=== PATIENT | female | born 1935 | race Caucasian/White ===

== ENCOUNTER → 2020-02-24 | Outpatient (CLI) | payer MEDICARE, BC | LOC: COL.VAS 10:29 | DX: R51 Headache (principal); R27.0 Ataxia, unspecified ==

== ENCOUNTER 2024-04-25 08:45 | Outpatient (RCR) | payer MEDICARE, BC | END 2024-05-04 | disposition home or self-care (01) | LOC: WSST | DX: R13.12 Dysphagia, oropharyngeal phase (principal) ==

== ENCOUNTER 2024-05-24 08:45 | Outpatient (RCR) | payer MEDICARE, BC | END 2024-06-04 | disposition home or self-care (01) | LOC: WSST | DX: R13.12 Dysphagia, oropharyngeal phase (principal) ==

== ENCOUNTER 2024-06-09 09:17 | Outpatient (RCR) | payer MEDICARE, BC ==
[2024-06-24] MEDS ORDERED: PEPCID 20MG TAB20 MG PO (07:18)
[2024-06-24] MEDS ORDERED: MOBIC 7.5MG7.5 MG PO (07:18)
== END 2024-07-04 | disposition home or self-care (01) ==
LOC: WSST
DX: R13.12 Dysphagia, oropharyngeal phase (principal)

== ENCOUNTER 2024-06-24 06:19 | Day surgery (SDC) | payer MEDICARE, BC ==
[~2024-06-24] VITALS: Ht 162.6 cm; Wt 45.7 kg
[~2024-06-24 06:19] MED LIST: LR 1,000 ML IV SCH; Ondansetron 4 MG/2 ML VIAL IV PRN
[2024-06-24 07:14] VITALS: BP 130/80; PULSE 73; TEMP 96.7
--- NOTE | 2024-06-24 07:16 | NUR ---
Pt arrived with son for procedure, son to wait in waiting room; VSS; reviewed meds/pharm/allergies/history and updated. Consent signed and questions/concerns answered. To place IV and await procedure.
[2024-06-24] MEDS ORDERED: MOBIC 7.5MG7.5 MG PO (07:18)
[2024-06-24] MEDS ORDERED: PEPCID 20MG TAB20 MG PO (07:18)
[2024-06-24] MEDS ORDERED: Lidocaine PF 2% (20 MG/ML) 5 ML VIAL ONE (08:08)
[2024-06-24 08:59] VITALS: BP 124/96; PULSE 66
[2024-06-24] MEDS ORDERED: Ondansetron 4 MG/2 ML VIAL ONE (09:11)
[2024-06-24 09:14] VITALS: BP 120/90
[2024-06-24 09:42] VITALS: BP 114/68; PULSE 55
--- NOTE | 2024-06-24 15:12 | NUR ---
0859- PT BACK TO BAY 5 FROM EGD. ASSISTED TO RECLINER. MONITORS IN PLACE AND VS OBTAINED. PT ANXIOUS AND READY TO LEAVE. EDUCATED PT THAT PROVIDER NEEDED TO COME TALK WITH PT AND VS NEEDED TO BE TAKEN BEFORE DISCHARGE. 00-PROVIDER IN TO TALK WITH PT AND SON AT BEDSIDE ABOUT PROCEDURE. 14- WATER AND SNACKS GIVEN TO PT. SOME COUGHING AFTER EATING AND DRINKING. EDUCATED PT TO SLOWLY EAT AND DRINK, PT VERBALIZED UNDERSTANDING. REQUESTING IV TO BE REMOVED. 914- IV REMOVED PER ORDERS. 919- DISCHARGE TEACHING DONE WITH PT AND SON. ANSWERED ALL QUESTIONS. PT HAVING LESS COUGHING WITH DRINKS AND SNACKS. 929- PT DISCHARGED FROM FACILITY VIA WHEELCHAIR TO PRIVATE VEHICLE DRIVEN BY SON.
== END 2024-06-24 09:30 ==
LOC: SDCO 06:19
DX: C14.0 Malignant neoplasm of pharynx, unspecified (principal); K21.9 Gastro-esophageal reflux disease without esophagitis; K44.9 Diaphragmatic hernia without obstruction or gangrene; K22.5 Diverticulum of esophagus, acquired
CPT/HCPCS: J2405; J2704; J7120

== ENCOUNTER 2024-07-16 08:36 | Emergency (ER) | payer MEDICARE, BC ==
[~2024-07-16] VITALS: Ht 162.6 cm; Wt 42.7 kg
[~2024-07-16 08:36] MED LIST changes: -LR 1,000 ML IV SCH; +MOBIC 7.5MG7.5 MG PO; -Ondansetron 4 MG/2 ML VIAL IV PRN; +PEPCID 20MG TAB20 MG PO
[2024-07-16 08:39] VITALS: TEMP 98
[2024-07-16] MEDS ORDERED: NS 1,000 ML IV ONE (09:15)
[2024-07-16 09:49] LABS: BASO % 0.2 % (0.0-2.0); EOS # 0.1 K/mm3 (0.0-0.7); EOS % 1.6 % (0.0-4.0); GRAN # 3.7 K/mm3 (1.4-6.5); GRAN % 64.8 % (42.2-75.2); HEMATOCRIT 38.2 % (37.0-47.0); HEMOGLOBIN 11.9 g/dl (12.5-16.0); LYMPH # 1.3 K/mm3 (1.2-3.4); LYMPH % 23.4 % (20.0-51.0); MEAN CELL VOLUME 100 fl (80.0-100.0); MEAN CORPUSCULAR HEMOGLOBIN 31 pg (27-31); MEAN CORPUSCULAR HGB CONC 31 g/dl (33.0-37.0); MEAN PLATELET VOLUME 9.4 fl (7.4-10.4); MONO # 0.6 K/mm3 (0.1-0.6); MONO % 9.8 % (1.7-9.3); PLATELET COUNT 235 K/mm3 (130-400); RED BLOOD COUNT 3.84 M/mm3 (4.10-5.30); REDCELL DISTRIBUTION WIDTH-CV 13.2 % (11.5-14.5)
[2024-07-16 10:08] LABS: ALBUMIN 3.3 g/dL (3.4-4.8); BILIRUBIN,TOTAL 0.8 mg/dL (0.2-1.2); CREATININE, serum 0.61 mg/dL (0.57-1.11); POTASSIUM 3.8 mEq/L (3.5-4.5); TOTAL PROTEIN 6.6 g/dl (6.2-8.1)
[2024-07-16 10:44] VITALS: BP 130/75; PULSE 64
== END 2024-07-16 10:49 | disposition home or self-care (01) ==
LOC: COL.ER 08:36
PROVIDERS: Personal Emergency Response Attendant
DX: C15.9 Malignant neoplasm of esophagus, unspecified (principal); R13.10 Dysphagia, unspecified
CPT/HCPCS: J7030

== ENCOUNTER 2024-07-18 14:38 | Inpatient (IN) | payer MEDICARE, BC ==
[~2024-07-18] VITALS: Ht 162.6 cm; Wt 35.3 kg
--- NOTE | 2024-07-18 15:51 | NUR ---
PATIENT ARRIVED TO FLOOR AT 1500 A DIRECT ADMIT TO RECEIVED PEG TUBE AND PORT. PATIENT ADMISSION, ASSESSMENT, AND MED REC COMPLETED. VSS. PATIENT FEELING ANXIOUS ABOUT OVER ALL HOSPITAL STAY AND SURGERY. PATIENT ORIAN. TO ROOM. PATIENT IS INDEPENDENT IN ROOM. PATIENT NPO STATUS TILL AFTER HOSPITALIST SEES HER. CALL LIGHT IN REACH
[2024-07-18 16:00] VITALS: BP 137/91; PULSE 74; TEMP 97.6
[2024-07-18] MEDS ORDERED: D5 1/2 NS 1,000 ML IV SCH (16:30)
[2024-07-18] MEDS ORDERED: Ondansetron 4 MG/2 ML VIAL IV PRN (16:30)
[2024-07-18 16:58] VITALS: BP_SYST 137
[2024-07-18 17:40] LABS: BASO % 0.3 % (0.0-2.0); EOS # 0.1 K/mm3 (0.0-0.7); EOS % 1.4 % (0.0-4.0); GRAN # 5.1 K/mm3 (1.4-6.5); GRAN % 70.5 % (42.2-75.2); HEMATOCRIT 37.4 % (37.0-47.0); HEMOGLOBIN 12.2 g/dl (12.5-16.0); LYMPH # 1.4 K/mm3 (1.2-3.4); LYMPH % 19.2 % (20.0-51.0); MEAN CORPUSCULAR HEMOGLOBIN 31 pg (27-31); MEAN CORPUSCULAR HGB CONC 33 g/dl (33.0-37.0); MEAN PLATELET VOLUME 9.6 fl (7.4-10.4); MONO # 0.6 K/mm3 (0.1-0.6); MONO % 8.5 % (1.7-9.3); PLATELET COUNT 240 K/mm3 (130-400); RED BLOOD COUNT 3.96 M/mm3 (4.10-5.30); REDCELL DISTRIBUTION WIDTH-CV 13.1 % (11.5-14.5)
[2024-07-18 17:41] LABS: MEAN CELL VOLUME 94 fl (80.0-100.0)
[2024-07-18 18:02] LABS: ALBUMIN 3.3 g/dL (3.4-4.8); BILIRUBIN,TOTAL 0.7 mg/dL (0.2-1.2); CALCIUM 8.9 mg/dL (8.4-10.2); CREATININE, serum 0.56 mg/dL (0.57-1.11); MAGNESIUM 2.1 mg/dL (1.6-2.6); POTASSIUM 3.4 mEq/L (3.5-4.5); TOTAL PROTEIN 6.7 g/dl (6.2-8.1)
[2024-07-18] MEDS ORDERED: Potassium Chloride 100 ML IV SCH (18:15)
[2024-07-18] MEDS ORDERED: *Potassium Replacement Protocol MC SCH (18:15)
[2024-07-18 19:11] VITALS: BP 113/69; PULSE 69; TEMP 97.5
[2024-07-18 19:50] VITALS: BP_SYST 113
--- NOTE | 2024-07-18 21:00 | NUR ---
Patient assessed around 1950. Alert and oriented, and able to make needs known. Denies having pain and discomfort, except discomfort to IV site. Patient has IV potassium. Slowed from 100 ml/hr to 75 ml/hr and ice placed to site. Patient stated that it has helped. Continues on IV fluids per orders. Denies SOB and dyspnea. LS CTA. HRR. BSAx4. No edema. Patient aware of plan for port and Peg tube placement tomorrow and that she is NPO. Voices no questions, needs, or concerns at this time. In bed with call light within reach.
[2024-07-18 23:30] VITALS: BP 114/74; PULSE 68; TEMP 97.6
[2024-07-18 23:56] VITALS: BP_SYST 114
[2024-07-19] VITALS (20 sets, daily range): BP systolic 94–140; BP diastolic 32–96; PULSE 56–99; TEMP 97.2–97.9
[2024-07-19] MEDS ORDERED: LR 1,000 ML IV SCH (05:00)
[2024-07-19 05:51] LABS: CALCIUM 8.3 mg/dL (8.4-10.2); CREATININE, serum 0.6 mg/dL (0.57-1.11)
--- NOTE | 2024-07-19 06:01 | NUR ---
Patient has denied pain and discomfort this shift. Recieved IV potassium per orders during the night. Continues on IV fluids. Voices no questions, needs, or concerns at this time. In bed with call light within reach.
[2024-07-19 06:24] LABS: BASO % 0.2 % (0.0-2.0); EOS # 0.2 K/mm3 (0.0-0.7); EOS % 3.4 % (0.0-4.0); GRAN # 3.4 K/mm3 (1.4-6.5); GRAN % 63.9 % (42.2-75.2); HEMOGLOBIN 11.7 g/dl (12.5-16.0); LYMPH # 1.1 K/mm3 (1.2-3.4); MEAN CELL VOLUME 94 fl (80.0-100.0); MEAN CORPUSCULAR HEMOGLOBIN 32 pg (27-31); MEAN CORPUSCULAR HGB CONC 34 g/dl (33.0-37.0); MEAN PLATELET VOLUME 9.7 fl (7.4-10.4); MONO # 0.6 K/mm3 (0.1-0.6); MONO % 11.1 % (1.7-9.3); PLATELET COUNT 221 K/mm3 (130-400); RED BLOOD COUNT 3.71 M/mm3 (4.10-5.30); REDCELL DISTRIBUTION WIDTH-CV 12.9 % (11.5-14.5)
[2024-07-19 06:26] LABS: HEMATOCRIT 34.7 % (37.0-47.0)
--- NOTE | 2024-07-19 07:15 | NUR ---
Patient's son in to see patient. Patient signed consents for PEG tube placement and Port placement. All questions answered. Patient voided, changed into clean gown. No dentures/partials/jewlry on. Pre-op fluids hung on bed and ready for when patient goes for surgery. Report given to day shift nurse.
[2024-07-19] MEDS ORDERED: Lidocaine PF 2% (20 MG/ML) 5 ML VIAL ONE (07:48)
[2024-07-19] MEDS ORDERED: fentaNYL 50 MCG/ML 2 ML VIAL ONE (07:48)
--- NOTE | 2024-07-19 08:00 | NUR ---
PT DOWN TO OR AT THIS VIA STRETCHER. CARIN REYNOSO AT BEDSIDE.
[2024-07-19] MEDS ORDERED: dexAMETHasone 10 MG/ML VIAL ONE (08:46)
[2024-07-19] MEDS ORDERED: Ondansetron 4 MG/2 ML VIAL ONE (08:46)
[2024-07-19] MEDS ORDERED: Pantoprazole 40 MG in NS 10 ML IV SCH (09:00)
[2024-07-19] MEDS ORDERED: HYDROmorphone 1 MG/1 ML SYRINGE [PACU/SDC ONLY] IV PRN (09:15)
[2024-07-19] MEDS ORDERED: Morphine 2 MG/1 ML VIAL [PACU/SDC ONLY] IV PRN (09:15)
[2024-07-19] MEDS ORDERED: Ondansetron 4 MG/2 ML VIAL IV PRN ×2 (09:15→11:00)
[2024-07-19] MEDS ORDERED: Meperidine 50 MG/ML 1 ML VIAL IV PRN (09:15)
[2024-07-19] MEDS ORDERED: fentaNYL 50 MCG/ML 1 ML SYRINGE/VIAL [PACU/SDC ONLY] IV PRN (09:15)
[2024-07-19] MEDS ORDERED: droPERidol 2.5 MG/ML 2 ML VIAL IV PRN (09:15)
[2024-07-19] MEDS ORDERED: Morphine 4 MG/ML VIAL IV PRN (11:00)
--- NOTE | 2024-07-19 11:00 | NUR ---
PT AWAKE AND RESTING IN BED. STATES PAIN IS IMPROVING. PEG TUBE AND PORTACATH IN PLACE. VSS. PT REQUESTS ICE CHIPS. WILL CONTINUE TO MONITOR.
--- NOTE | 2024-07-19 11:00 | NUR ---
PT BACK ONTO UNIT AT THIS TIME VIA STRECTHER. SON AT BEDSIDE.
--- NOTE | 2024-07-19 12:09 | NUR ---
JEYSON met with patient and son/DPOA Lance Mace ([phone]) to complete initial assessment for discharge planning. Patient also lists her daughter in law Man ([phone]) as contact. Patient sees Dr. Christo Rivera as her PCP and uses [facility] pharmacy without difficulty. Patient's only DME is a cane. Discussed discharge need of services to train and monitor tube feedings. Medicare.gov list offered and patient chose [facility] for services. Patient is anxious to discharge home today and keep appointment with oncology this afternoon at 1600. JEYSON spoke with Mary, dietitian, to discuss discharge coordination. She was informed that [facility] was chosen and that patient is anxious to discharge today. Mary to speak with Dr. Owens, attending. Referral and orders to be sent to [facility] for tube feeds and supplies. Discharge plan: Home with HH
[2024-07-19] MEDS ORDERED: Glucagon 1 MG VIAL IM PRN (12:45)
[2024-07-19] MEDS ORDERED: Dextrose (Glucose) 15 GM (4 x 3.75 GM) Chewable TABLET PACK PO PRN (12:45)
[2024-07-19] MEDS ORDERED: Dextrose 50% Water 25 GM/50 ML SYRINGE IV PRN (12:45)
[2024-07-19] MEDS ORDERED: Insulin Lispro (HumaLOG) SQ SCH (18:00)
--- NOTE | 2024-07-19 21:48 | NUR ---
PATIENT ALERT AND ORIENTED X4. VSS. PATIENT HERE FOR PORT AND PEG PLACEMENT. PATIENT REPORTS MILD PAIN AROUND PORT PLACEMENT, REPORTS PORT IS JUST SORE BUT NO NEED FOR PAIN MEDICATION AT THIS TIME. PEG CLAMPED. PATIENT NPO WITH THE EXCEPTION OF ICE CHIPS. IV FLUIDS INFUSING INTO PORT AT 75ML/HOUR. PATIENT DENIES ANY FURTHER NEEDS. CALL LIGHT IN REACH.
[2024-07-20] VITALS (11 sets, daily range): BP systolic 92–114; BP diastolic 52–73; PULSE 66–73; TEMP 97.4–98.2
--- NOTE | 2024-07-20 04:32 | NUR ---
ORDER FOR DAILY WEIGHT WAS ENTERED AT 35.3KG USING [employer]. UNKNOWN IF PRIOR WEIGHT WAS TAKEN USING BEDSCALE.
[2024-07-20 07:43] LABS: CALCIUM 8.1 mg/dL (8.4-10.2); CREATININE, serum 0.57 mg/dL (0.57-1.11); POTASSIUM 3.9 mEq/L (3.5-4.5)
[2024-07-20 07:52] LABS: BASO % 0.3 % (0.0-2.0); EOS # 0.1 K/mm3 (0.0-0.7); EOS % 0.7 % (0.0-4.0); GRAN # 7.1 K/mm3 (1.4-6.5); GRAN % 72.5 % (42.2-75.2); HEMOGLOBIN 11.8 g/dl (12.5-16.0); LYMPH # 1.7 K/mm3 (1.2-3.4); LYMPH % 17.3 % (20.0-51.0); MEAN CELL VOLUME 92 fl (80.0-100.0); MEAN CORPUSCULAR HEMOGLOBIN 32 pg (27-31); MEAN CORPUSCULAR HGB CONC 34 g/dl (33.0-37.0); MONO # 0.9 K/mm3 (0.1-0.6); MONO % 8.9 % (1.7-9.3); PLATELET COUNT 248 K/mm3 (130-400); RED BLOOD COUNT 3.72 M/mm3 (4.10-5.30); REDCELL DISTRIBUTION WIDTH-CV 13.1 % (11.5-14.5)
[2024-07-20 07:54] LABS: HEMATOCRIT 34.3 % (37.0-47.0)
[2024-07-20 07:56] LABS: PHOSPHOROUS 2.1 mg/dL (2.3-4.7)
--- NOTE | 2024-07-20 08:00 | NUR ---
Patient is awake and asking for a walk, assisted to walk in the halls and back into room. Asking about going home, explained to wait for the doctor. Assessment completed, getting fluids per orders. No further needs at this time. Call light within reach.
--- NOTE | 2024-07-20 12:01 | NUR ---
JEYSON met with patient and her son to review discharge plan. Verified that referral has been sent to [facility] and [facility]. SW was notified prior to meeting with patient that she is wanting to discharge home today and does not want to stay until tomorrow as recommended by attending and medical staff. JEYSON explained referral process that includes coordinating supplies and feeds with [facility] and staffing and training for services. Patient and son voiced understanding. JEYSON sent clinical updates to [facility] and tube feed orders to [facility]. discharge plan: Home with
--- NOTE | 2024-07-20 13:41 | NUR ---
Patient tolerating feedings well, no N/V. She would like to be ready to be discharge so she asks to help her learn how to do the feedings herself. Report given to Jaci. BLAYNE.
--- NOTE | 2024-07-20 14:00 | NUR ---
HEAD TO TOE ASSESSMENT COMPLETED AT THIS TIME. PT A&OX4. PT RESTING IN CHIAR UPON ENTRANCE. PEG TUBE FEEDING FLUSHED BEFORE AND AFTER AND COMPLETED AT THIS TIME. PT TOLERATED WELL. PT'S PORT IS ACSESSED. IVF INFUSING. PT DENIES PAIN AT THIS TIME. CALL LIGHT WITHIN REACH. NO FURTHER NEEDS AT THIS TIME.
--- NOTE | 2024-07-20 21:52 | NUR ---
PATIENT ALERT AND ORIENTED X2, WITH INTERMITTENT CONFUSION. VSS. PATIENT HERE FOR PORT AND PEG PLACEMENT. PATIENT REFUSED LAST BOLUS FEEDING, REPORTING THAT "THE HOSPITAL IS PUSHING HER TO EAT WHEN SHE DOESN'T FEEL LIKE IT." PORT A CATH TO LEFT CHEST WITH FLUIDS RUNNING AT 50ML/HOUR. PATIENT DENIES ANY PAIN AT THIS TIME. PM MEDS ADMINISTERED. NO FURTHER NEEDS. CALL LIGHT IN REACH. BED ALARM ON.
[2024-07-21 00:04] VITALS: BP_SYST 106
[2024-07-21 03:26] VITALS: BP 108/53; PULSE 68; TEMP 98.2
[2024-07-21 04:30] VITALS: BP_SYST 108
--- NOTE | 2024-07-21 05:39 | NUR ---
PATIENT REFUSED BLOOD DRAW FOR LABS AND STATES, "I AM DISCHARGING TODAY, I DON'T NEED THAT." PATIENT EDUCATED ON IMPORTANCE OF COMPLIANCE WITHIN THE HOSPITAL TO ALLOW ADEQUATE CARE OF PATIENT. PATIENT CONTINUES TO REFUSE.
--- NOTE | 2024-07-21 05:56 | NUR ---
UNABLE TO OBTAIN PATIENT'S DAILY WEIGHT. PATIENT REFUSES TO SIT OR LIE IN BED. PATIENT AMBULATING WITHIN THE ROOM, APPEARS ANXIOUS. THIS NURSE SPOKE WITH PATIENT ABOUT HER CONCERNS. PATIENT STATES, "I JUST WANT TO GO HOME." PATIENT REMINDED TO USE CALL LIGHT IF SHE NEEDS ASSISTANCE AND TO BE MINDFUL OF HER IV POLE WHILE WALKING IN ROOM.
[2024-07-21 07:24] VITALS: BP 136/77; PULSE 69; TEMP 98.1
[2024-07-21 08:00] VITALS: BP_SYST 136
[2024-07-21 09:59] LABS: CALCIUM 8.5 mg/dL (8.4-10.2); CREATININE, serum 0.55 mg/dL (0.57-1.11); PHOSPHOROUS 2.8 mg/dL (2.3-4.7); POTASSIUM 3.6 mEq/L (3.5-4.5)
--- NOTE | 2024-07-21 10:06 | NUR ---
SHIFT ASSESSMENT COMPLETED. VSS. PATIENT AWAKE AND REQUESTING TO GO HOME. PATIENT RECEIVED TUBE FEEDING THIS NURSE ASSISTED. PATIENT DECLINED MORNING MEDS ORDERED AND REQUESTED TO BE DISCONNECTED FROM IV FLUIDS. HOSPITLAIST PLACED ORDER FOR FLUIDS TO DC'D. PATIENT HAS NO OTHER REQUEST AT THIS TIME. DISCHARGE ORDERS PLACED. CALL LIGHT IN REACH
--- NOTE | 2024-07-21 10:11 | NUR ---
DISCHARGE COMPLETE ALL QUESTIONS ANSWERED.
--- NOTE | 2024-07-21 10:12 | NUR ---
JEYSON attended clinical rounds. Patient stable for discharge home today with [facility]. JEYSON received confirmation from [facility] that they have all orders needed to provide tube feed supplies and nuttition. These will be delivered to patient's home today. JEYSON faxed discharge orders and updated clinicals to [facility]. Son to drive patient home Discharge plan: Home with [facility]
== END 2024-07-21 10:35 | disposition home health service (06) | DRG 374 ==
LOC: SURG 14:38
PROVIDERS: Internal Medicine; Physician Assistant; Surgery; ADMIT Internal Medicine
PROC: 0DH60UZ Insertion of Feeding Device into Stomach, Open Approach (ICD-10-PCS; 2024-07-19)
PROC: 0JH63WZ Insertion of Totally Implantable Vascular Access Device into Chest Subcutaneous Tissue and Fascia, Percutaneous Approach (ICD-10-PCS; principal; 2024-07-19 08:30)
PROC: 02HV33Z Insertion of Infusion Device into Superior Vena Cava, Percutaneous Approach (ICD-10-PCS; 2024-07-19 08:30)
DX: C15.3 Malignant neoplasm of upper third of esophagus (principal); E43 Unspecified severe protein-calorie malnutrition; Z68.1 Body mass index [BMI] 19.9 or less, adult; K21.9 Gastro-esophageal reflux disease without esophagitis; F41.9 Anxiety disorder, unspecified; R63.4 Abnormal weight loss; R53.81 Other malaise
CPT/HCPCS: C1788; J0690; J1100; J1650; J1815; J2405; J2470; J2704; J3010; J3480; J7050